=== PATIENT | female | born 1975 | race Caucasian/White ===

== ENCOUNTER 2018-09-09 21:39 | Emergency (ER) | payer BC ==
[2018-09-09 22:18] LABS: CHLORIDE,CL 106 mEq/L (98-106); SODIUM,NA 140 mEq/L (136-145)
--- NOTE | 2018-09-09 22:31 | EDM.PDOC ---
ED HPI GENERAL MEDICAL PROBLEM - General Chief Complaint: Chest Pain Stated Complaint: chest pain Time Seen by Provider: 09/09/18 22:00 Source of Information: Reports: Patient History Limitations: Reports: No Limitations - History of Present Illness INITIAL COMMENTS - FREE TEXT/NARRATIVE: Patient presents to ER with midsternal chest discomfort. States has had severe pain in her sternal area for over an hour. Does relate that she had gastric bypass surgery 6 months ago. Only complication she had really experienced was a bout of dehydration. She does admit to eating pizza about 2 hours prior to having the pain. Had not had pain after eating in the past, more of a "rolling in her pouch" and hiccups but never pain like this. States the pain "took her breath away" but no real shortness of breath. Mild nausea and did dry heave a few times but that did not relieve the pressure. Had not felt well today due to cold symptoms. No fevers. Denies heartburn symptoms. No recent diarrhea. Onset: Today, Sudden Duration: Hour(s): Location: Reports: Chest Quality: Reports: Pressure, Sharp Severity: Severe Associated Symptoms: Reports: Chest Pain, Nausea/Vomiting. Denies: Cough, Fever /Chills, Loss of Appetite, Malaise, Shortness of Breath, Syncope Treatments AND RESCUE FIRE FIGHTER CRASH FIRE: Reports: Aspirin, Other (see below) Other Treatments AND RESCUE FIRE FIGHTER CRASH FIRE: 4 baby asa given in EMS - Related Data Allergies Allergy/AdvReac Type Severity Reaction Status Date / Time butorphanol tartrate Allergy Seizure Verified 09/09/18 22:14 [From Stadol] NSAIDS (Non-Steroidal Allergy Other Verified 09/09/18 22:14 Anti-Inflamma Home Meds: Home Meds Zolpidem [Ambien] 5 mg PO BEDTIME 04/23/14 [History] Cyclobenzaprine HCl 10 mg PO BEDTIME 03/15/18 [History] Omeprazole 20 mg PO DAILY 03/15/18 [History] Calcium Citrate/Vitamin D3 [Calcium Citrate - Vit D Caplet] 1 each PO TID [History] Ferrous Sulfate [Iron] 325 mg PO BID 09/09/18 [History] Multivitamin [Multi-Day Vitamins] 1 each PO DAILY 09/09/18 [History] Past Medical History - Past Health History Medical/Surgical History: Denies Medical/Surgical History HEENT History: Reports: Impaired Vision Gastrointestinal History: Reports: GERD [employer] History: Reports: Musculoskeletal History: Reports: Arthritis, Other (See Below) Other Musculoskeletal History: TMJ Neurological History: Reports: Other (See Below) Other Neuro History: EPILEPSY-no seizure activity in 15 years. Endocrine/Metabolic History: Reports: Obesity/BMI 30+ - Past Surgical History HEENT Surgical History: Reports: Eye Surgery, Myringotomy w Tube(s) GI Surgical History: Reports: Other (See Below) Other GI Surgeries/Procedures: GASTRIC BYPASS ON 02-25-18 Female Surgical History: Reports: Tubal Ligation Social & Family History - Tobacco Use Smoking Status *Q: Never Smoker - Caffeine Use Caffeine Use: Reports: None ED ROS GENERAL - Review of Systems Review Of Systems: See Below Constitutional: Reports: Malaise. Denies: Fever, Chills, Fatigue, Decreased Appetite HEENT: Denies: Ear Pain, Sinus Problem, Throat Pain, Vertigo Respiratory: Denies: Shortness of Breath, Cough Cardiovascular: Reports: Chest Pain. Denies: Edema, Lightheadedness Endocrine: Denies: Fatigue GI/Abdominal: Reports: Abdominal Pain, Nausea. Denies: Diarrhea, Vomiting : Reports: No Symptoms Musculoskeletal: Reports: No Symptoms Skin: Reports: No Symptoms Neurological: Reports: No Symptoms ED EXAM, GENERAL - Physical Exam Exam: See Below Exam Limited By: No Limitations General Appearance: Alert, WD/WN, No Apparent Distress Ears: Normal External Exam, Normal TMs Nose: Normal Inspection, Normal Mucosa, No Blood Throat/Mouth: Normal Inspection, Normal Oropharynx Head: Normocephalic Neck: Normal Inspection, Supple, Non-Tender Respiratory/Chest: No Respiratory Distress, Lungs Clear, Normal Breath Sounds Cardiovascular: Regular Rate, Rhythm GI/Abdominal: Normal Bowel Sounds, Soft, Non-Tender Extremities: Normal Inspection, Normal Capillary Refill Neurological: Alert, Oriented Skin Exam: Warm, Dry Course - Vital Signs Last Recorded V/S: Last Vital Signs Temp 97.7 F 09/09/18 21:39 Pulse 63 09/09/18 21:39 Resp 16 09/09/18 21:39 BP 104/61 09/09/18 21:39 Pulse Ox 100 09/09/18 21:39 - Orders/Labs/Meds Orders: Active Orders 24 hr Category Date Time Status EKG Documentation Completion [RC] STAT Care 09/09/18 21:36 Active CXR [Chest 2V] [CR] Stat Exams 09/09/18 21:37 Taken Labs: Laboratory Tests 09/09/18 09/09/18 09/09/18 Range/Units 21:38 21:38 21:38 WBC 4.2 L (5.0-10.0) 10^3/uL RBC 4.32 (4.00-5.50) 10^6/uL Hgb 12.1 (12.0-16.0) g/dL Hct 37.3 (37.0-47.0) % MCV 86.3 (82.0-94.0) fL MCH 28.0 (27.0-32.0) pg MCHC 32.4 L (33.0-38.0) g/dL RDW Coeff of Isis 14.7 (11.0-15.0) % Plt Count 170 (150-400) 10^3/uL Neut % (Auto) 60.2 (35-85) % Lymph % (Auto) 22.7 (10-55) % Moody % (Auto) 15.2 (0-16) % Eos % (Auto) 1.4 (0-5) % Baso % (Auto) 0.5 (0-3) % Neut # (Auto) 2.50 (1.80-7.00) 10^3/uL Lymph # (Auto) 0.94 L (1.00-4.80) 10^3/uL Moody # (Auto) 0.63 (0.00-0.80) 10^3/uL Eos # (Auto) 0.06 (0.00-0.45) 10^3/uL Baso # (Auto) 0.02 10^3/uL PT 10.3 (9.7-12.3) SEC INR 0.99 (0.92-1.18) APTT 26.3 (23.2-32.3) SEC D-Dimer, Quantitative 0.44 (0.00-0.50) Sodium 140 (136-145) mEq/L Potassium 3.5 (3.5-5.0) mEq/L Chloride 106 (98-106) mEq/L Carbon Dioxide 26 (21-32) mmol/L BUN 13 (7-18) mg/dL Creatinine 0.8 (0.6-1.0) mg/dL Est Cr Clr Drug Dosing 74.23 mL/min Estimated GFR (MDRD) > 60 (>=60) mL/min Glucose 99 (75-99) mg/dL Calcium 8.6 (8.4-10.1) mg/dL Lactate Dehydrogenase 170 (100-190) U/L Creatine Kinase 45 (21-215) U/L Troponin I < 0.017 (0.00-0.06) ng/mL - Re-Assessments/Exams Free Text/Narrative Re-Assessment/Exam: 09/09/18 pain had eased some by arrival time here in the ER. Now just feels sore in her chest. EKG, chest xray and lab all negative. Pain likely related to food consumption 2 hours ago due to changes with gastric bypass surgery. Departure - Departure Time of Disposition: 22:30 Disposition: Home, Self-Care 01 Condition: Good Clinical Impression: Atypical chest pain Forms: ED Department Discharge Additional Instructions: 1. Rest 2. Push fluids 3. Martha diet, avoid dense, spicy foods 4. Tylenol for discomfort 5. TUMS as needed 6. Follow up if any ongoing pain or concerns. - My Orders Last 24 Hours: My Active Orders 09/09/18 21:36 EKG Documentation Completion [RC] STAT 09/09/18 21:37 CXR [Chest 2V] [CR] Stat - Assessment/Plan Last 24 Hours: My Active Orders 09/09/18 21:36 EKG Documentation Completion [RC] STAT 09/09/18 21:37 CXR [Chest 2V] [CR] Stat
[2018-09-09 23:21] VITALS: BP 118/70
== END 2018-09-09 22:40 | disposition home or self-care (01) ==
LOC: CC.ED 21:39
DX: R07.89 Other chest pain (principal); K21.9 Gastro-esophageal reflux disease without esophagitis; Z79.899 Other long term (current) drug therapy; Z88.8 Allergy status to other drugs, medicaments and biological substances
CPT/HCPCS: 36415; 71046; 80048; 82550; 83615; 84484; 85025; 85379; 85610; 85730; 93005; 99285-25